=== PATIENT | female | born 1960 | race Caucasian/White ===

== ENCOUNTER → 2016-05-21 | Outpatient (CLI) | payer MEDICAID ==
[~2016-05-21] MED LIST: ESTRADERM0.05 MG TOP; GABAPENTIN100 MG PO; MOBIC15 MG PO; NORCO 325-5 MG1 TAB PO; RISPERDAL1 MG PO; TOPROL XL25 MG PO; VALIUM5 MG PO
== END | disposition short-term general hospital (02) ==
LOC: CLRHEU 10:43
DX: M25.50 Pain in unspecified joint (principal); R76.0 Raised antibody titer; M54.9 Dorsalgia, unspecified

== ENCOUNTER 2016-07-07 16:58 | Emergency (ER) | payer MEDICAID | END 2016-07-07 17:10 | disposition left against medical advice (07) | LOC: ER 16:58 | DX: Z53.21 Procedure and treatment not carried out due to patient leaving prior to being seen by health care provider (principal) ==